=== PATIENT | male | born 1975 | race Caucasian/White ===

== ENCOUNTER 2016-09-19 11:22 | Inpatient (IN) | payer OTHER, MEDICAID ==
[2016-09-19 11:44] LABS: % IMMATURE GRANULYOCYTES 0.2 % (0.0-1.1); ABSOLUTE IMMATURE GRANULOCYTES 0.01 10^3/uL (0.00-0.10); ADD DIFF? NO; ADD MORPH? NO; ADD SCAN? NO; ATYPICAL LYMPHOCYTE FLAG 10 (0-99); FRAGMENT RBC FLAG 0 (0-99); HEMATOCRIT 46.7 % (40.0-51.0); LEFT SHIFT FLG 0 (0-99); LIPEMIA HEMOLYSIS FLAG 90 (0-99); MEAN CELL HEMOGLOBIN 28.6 pg (27.9-34.1); MEAN CELL HEMOGLOBIN CONCENTR. 34.3 g/dL (32.4-36.7); MEAN CELL VOLUME 83.5 fL (81.5-99.8); PLATELET CLUMPS FLAG 0 (0-99); PLATELET COUNT 253 10^3/uL (150-400); RED BLOOD CELL COUNT 5.59 10^6/uL (4.40-6.38); RED CELL DISTRIBUTION WIDTH 12.8 % (11.5-15.2)
[2016-09-19 12:05] LABS: ANION GAP 13 mEq/L (8-16); CALCIUM 10.4 mg/dL (8.5-10.4); CARBON DIOXIDE 24 mEq/l (22-31); CHLORIDE 104 mEq/L (97-110); ETHANOL SERUM < 10 mg/dL (0-10); GLOMERULAR FILTRATION RATE > 60; GLUCOSE 98 mg/dL (70-100); POTASSIUM 4.5 mEq/L (3.5-5.2); SODIUM 141 mEq/L (134-144)
--- NOTE | 2016-09-19 12:28 | EDPHY ---
H & P Stated Complaint: psych eval. Time Seen by Provider: 09/19/16 11:50 HPI/ROS: CHIEF COMPLAINT: Possible psychosis HISTORY OF PRESENT ILLNESS: 41-year-old male history of bipolar disorder, type 1 , history of alcohol use disorder, currently residing in a rehabilitation facility, brought into the ER by the director of the rehabilitation facility over concerns of increasing psychosis. Per the director of the facility, Darin , patient has been barricaded himself in his room and then was observed building a boat and trying to find [place] in his room, had arranged a set of oranges in a certain pattern and had been making hand gestures to a person who was not immediately visible to the staff there. Appeared to be responding to internal stimuli. Denies suicidal homicidal ideation. Patient adamantly denies statements of the director of the rehabilitation facility he is lying. In interviewing the director of the facility, the patient cannot return to the facility in his current mental health state REVIEW OF SYSTEMS: A ten point review of systems was performed and is negative with the exception of the items mentioned in the HPI PAST MEDICAL & SURGICAL HISTORY: Bipolar disorder SOCIAL HISTORY: denies recent alcohol or drug use PHYSICAL EXAM (Prior to examination, patient consented to physical exam, hands were washed and my usual and customary physical exam procedures followed) 1) GENERAL: Well-developed, well-nourished, alert and oriented. He is intermittently agitated, suspicious appearing, appears intermittently respond to internal stimuli 2) HEAD: Normocephalic, atraumatic 3) HEENT: Pupils equal, round, reactive to light bilaterally. Sclera anicteric. 4) NECK: Full range of motion, no meningeal signs. 5) LUNGS: Clear auscultation bilaterally, no wheezes, no rhonchi, no retractions. 6) HEART: Regular rate and rhythm, no murmur, no heave, no gallop. 7) ABDOMEN: No guarding, no rebound, no focal tenderness, negative McBurney's, negative Sommers's, negative Rovsing's, negative peritoneal sign, 8) MUSCULOSKELETAL: Moving all extremities, no focal areas of tenderness, no obvious trauma. No peripheral edema or discoloration. 9) BACK: No CVA tenderness, no midline vertebral tenderness, no fluctuance, no step-off, no obvious trauma, no visual or palpable abnormality. 10) SKIN: No rash, no petechiae. 11) Psychiatric: Patient is oriented X 3, intermittently agitated, suspicious appearing, appears to respond to internal stimuli intermittently. DIFFERENTIAL DIAGNOSIS: no particular include but limited to acute psychosis, cynthia, depression , intoxicants use - Personal History Current Tetanus/Diphtheria Vaccine: Unsure Current Tetanus Diphtheria and Acellular Pertussis (TDAP): Unsure Tetanus Vaccine Date: Unknown - Medical/Surgical History Hx Asthma: No Hx Chronic Respiratory Disease: No Hx Diabetes: No Hx Cardiac Disease: No Hx Renal Disease: No Hx Cirrhosis: No Hx Alcoholism: No Hx HIV/AIDS: No Hx Splenectomy or Spleen Trauma: No Other PMH: Bipolar disorder, panic attack. PSHx: L foot surgery - Social History Smoking Status: Current every day smoker Constitutional: Initial Vital Signs Temperature (C) 36.5 C 09/19/16 11:25 Heart Rate 88 09/19/16 11:25 Respiratory Rate 16 09/19/16 11:25 Blood Pressure 166/100 H 09/19/16 11:25 O2 Sat (%) 99 09/19/16 11:25 O2 Delivery Mode Room Air Allergies/Adverse Reactions: No Known Allergies Allergy (Verified 03/14/16 15:08) Home Medications: Medication Instructions Recorded Divalproex ER [Depakote ER 250 MG 500 mg PO BID #60 tab 03/18/16 (*)] Famotidine [Pepcid 20 MG (*)] 20 mg PO BID PRN #0 tab 03/18/16 Lisinopril [Zestril 10 mg (*)] 10 mg PO DAILY #30 tab 03/18/16 OLANZapine [ZyPREXA 2.5 mg (*)] 2.5 mg PO BID@ #15 tab 03/18/16 hydrOXYzine HCL 100 mg PO TID #90 tab 03/18/16 Medical Decision Making ED Course/Re-evaluation: 12:28 p.m.: After evaluating the patient I think that the patient is gravely disabled and would benefit from mental health evaluation. He has been placed on M1 hold over concerns about his ability to care for himself. 1:35 p.m. patient has been accepted for admission to Dr. Becki Barrett - Data Points Laboratory Results: Laboratory Results 09/19/16 11:25 09/19/16 11:25 09/19/16 11:25 WBC 5.66 10^3/uL (3.80-9.50) RBC 5.59 10^6/uL (4.40-6.38) Hgb 16.0 g/dL (13.7-17.5) Hct 46.7 % (40.0-51.0) MCV 83.5 fL (81.5-99.8) MCH 28.6 pg (27.9-34.1) MCHC 34.3 g/dL (32.4-36.7) RDW 12.8 % (11.5-15.2) Plt Count 253 10^3/uL (150-400) MPV 10.0 fL (8.7-11.7) Neut % (Auto) 62.7 % (39.3-74.2) Lymph % (Auto) 30.0 % (15.0-45.0) Dare % (Auto) 5.5 % (4.5-13.0) Eos % (Auto) 1.1 % (0.6-7.6) Baso % (Auto) 0.5 % (0.3-1.7) Nucleat RBC Rel Count 0.0 % (0.0-0.2) Absolute Neuts (auto) 3.55 10^3/uL (1.70-6.50) Absolute Lymphs (auto) 1.70 10^3/uL (1.00-3.00) Absolute Monos (auto) 0.31 10^3/uL (0.30-0.80) Absolute Eos (auto) 0.06 10^3/uL (0.03-0.40) Absolute Basos (auto) 0.03 10^3/uL (0.02-0.10) Absolute Nucleated RBC 0.00 10^3/uL (0-0.01) Immature Gran % 0.2 % (0.0-1.1) Immature Gran # 0.01 10^3/uL (0.00-0.10) Sodium 141 mEq/L (134-144) Potassium 4.5 mEq/L (3.5-5.2) Chloride 104 mEq/L (97-110) Carbon Dioxide 24 mEq/l (22-31) Anion Gap 13 mEq/L (8-16) BUN 13 mg/dL (7-23) Creatinine 1.0 mg/dL (0.7-1.3) Estimated GFR > 60 Glucose 98 mg/dL (70-100) Calcium 10.4 mg/dL (8.5-10.4) Urine Opiates Screen NEGATIVE (NEGATIVE) Urine Barbiturates NEGATIVE (NEGATIVE) Ur Phencyclidine Scrn NEGATIVE (NEGATIVE) Ur Amphetamine Screen NEGATIVE (NEGATIVE) U Benzodiazepines Scrn NEGATIVE (NEGATIVE) Urine Cocaine Screen NEGATIVE (NEGATIVE) U Marijuana (THC) Screen NEGATIVE (NEGATIVE) Ethyl Alcohol < 10 mg/dL (0-10) Medications Given: Discontinued Medications Lorazepam (Ativan) 1 mg PO EDNOW ONE Stop: 09/19/16 13:39 Last Admin: 09/19/16 14:09 Dose: 1 mg Lorazepam (Ativan) 1 mg PO EDNOW ONE Stop: 09/19/16 13:43 Last Admin: 09/19/16 15:20 Dose: Not Given Departure - Departure Disposition: [facility] IP Clinical Impression: Acute psychosis Bipolar disorder Qualifiers: Active/Remission status: currently active Current bipolar episode type: manic Current episode severity: moderate Qualifier Code: (F31.12) Bipolar disorder, current episode manic without psychotic features, moderate Condition: Fair Referrals: IN STATE,. [Primary Care Provider] - As per Instructions
[2016-09-19] MEDS ORDERED: NICOTINE POLACRILEX 2 MG GUM B PRN (13:30)
[2016-09-19] MEDS ORDERED: OLANZapine DISINTEGR 10 MG TAB PO ONE (13:30)
[2016-09-19] MEDS ORDERED: MAG HYDROX/AL HYDROX/SIMETH 30 ML UDCUP PO PRN ×2 (13:30→18:18)
[2016-09-19] MEDS ORDERED: OLANZapine DISINTEGR 10 MG TAB PO PRN (13:30)
[2016-09-19] MEDS ORDERED: MAGNESIUM HYDROXIDE 30 ML UDCUP PO PRN ×2 (13:30→18:18)
[2016-09-19] MEDS ORDERED: LORazepam 0.5 MG TAB PO PRN (13:30)
[2016-09-19] MEDS ORDERED: ACETAMINOPHEN 325 MG TAB PO PRN ×2 (13:30→18:18)
[2016-09-19] MEDS ORDERED: LORazepam 1 MG TAB PO ONE ×2 (13:38→13:42)
[2016-09-19] MEDS ORDERED: FAMOTIDINE 20 MG TAB PO PRN ×2 (13:39→18:18)
[2016-09-19] MEDS ORDERED: hydrOXYzine HCL 50 MG TAB PO SCH (16:00)
[2016-09-19] MEDS ORDERED: DIVALPROEX ER 500 MG TAB PO SCH (21:00)
[2016-09-19] MEDS ORDERED: OLANZapine 2.5 MG TAB PO SCH (21:00)
[2016-09-19] MEDS: DIVALPROEX ER 500 MG TAB PO SCH ×2 (21:18→21:30)
[2016-09-19] MEDS: hydrOXYzine HCL 50 MG TAB PO SCH (21:19)
[2016-09-19] MEDS: OLANZapine 2.5 MG TAB PO SCH ×2 (21:19→21:31)
[2016-09-19] MEDS: NICOTINE POLACRILEX 2 MG GUM B PRN (21:44)
[2016-09-19] MEDS ORDERED: QUEtiapine FUMARATE 100 MG TAB PO ONE (22:30)
[2016-09-20] MEDS: DIVALPROEX ER 500 MG TAB PO SCH (08:41)
[2016-09-20] MEDS: hydrOXYzine HCL 50 MG TAB PO SCH ×3 (08:42→21:04)
[2016-09-20] MEDS: NICOTINE POLACRILEX 2 MG GUM B PRN ×7 (08:43→19:04)
[2016-09-20] MEDS: LISINOPRIL 10 MG TAB PO SCH (08:46)
[2016-09-20] MEDS ORDERED: LISINOPRIL 10 MG TAB PO SCH (09:00)
[2016-09-20] MEDS: NICOTINE 21 MG/24 HR PATCH TD SCH ×2 (09:20→15:31)
--- NOTE | 2016-09-20 14:46 | BCON ---
[f rep st] BEHAVIORAL HEALTH CONSULTATION INTERNAL MEDICINE CONSULTATION DATE OF CONSULTATION: 09/20/2016 REFERRING PHYSICIAN: Becki Golden MD REASON FOR CONSULTATION: Medical clearance for inpatient behavioral health stay. HISTORY OF PRESENT ILLNESS: The patient was brought to the [facility] Emergency Department from a sober living alcohol rehabilitation facility called [place] out of concern for unusual behavior. The director of the program was concerned that he was responding to internal stimuli and was delusional. He was evaluated by the mental health team and admitted for further psychiatric care. He is currently without any acute complaint, other than feeling strongly that he should not be in the inpatient behavioral health unit and that it was a mistake for him to be brought to the emergency department. PAST MEDICAL HISTORY: 1. Bipolar disorder. 2. Alcohol use disorder, which apparently has been in remission for a number of months. 3. Hypertension. 4. History of bone spur on the left foot. PAST SURGICAL HISTORY: He had a procedure when he was in high school for the bone spur on the left foot. MEDICATIONS: He was taking divalproex 500 mg p.o. b.i.d., famotidine 20 mg p.o. b.i.d. p.r.n., lisinopril 10 mg p.o. daily, olanzapine 2.5 mg b.i.d., and hydroxyzine 100 mg t.i.d. ALLERGIES: There are no known drug allergies. SOCIAL HISTORY: He has a degree in finance, but has not worked in several years. He lives with his parents. He is a tobacco smoker. He says he had quit for 9 years, but started again with medication changes because he feels that the tobacco calms him down. He has a history of alcohol abuse with binge drinking but has been sober for many months now. FAMILY HISTORY: There is a history of alcoholism on his mother's side. REVIEW OF SYSTEMS: A 10-point review of systems was conducted and was negative. PHYSICAL EXAMINATION: VITAL SIGNS: Blood pressure this morning was 142/77, yesterday evening was 108/62. Heart rate was 79. Respiratory rate 12. Oxygen saturation 96% on room air. Temperature 36.4 degrees centigrade. His weight is 79.4 kg for a body mass index of 26.6. GENERAL: This is a well-nourished, well-developed man, well groomed, cooperative and in no acute distress. HEENT: Extraocular movements are intact. Pupils are equal, round, and reactive to light. Mucous membranes are moist. Dentition is in good condition. NECK: Supple. HEART: There is a regular rate and rhythm with no murmurs, rubs, or gallops. LUNGS: Clear to auscultation bilaterally. ABDOMEN: Soft, nontender , nondistended with normoactive bowel sounds. EXTREMITIES: There is no cyanosis, clubbing, or edema. NEUROLOGIC: He is alert and oriented x3. Cranial nerves II-XII are grossly intact. There is no focal weakness. Sensation is intact to light touch and gait is within normal limits. LABORATORY DATA: Laboratory studies from the emergency department: CBC was completely within normal limits. Serum chemistry showed normal renal function and electrolytes. Toxicology in the serum was negative for ethyl alcohol, and the urine was negative for substances of abuse. ASSESSMENT/RECOMMENDATIONS: 1. Mental health issues. Pending further evaluation and management per Psychiatry and the mental health team. 2. Tobacco dependence syndrome. He was encouraged to stop smoking. 3. Hypertension. Advised continuing his lisinopril and monitoring his blood pressure. If this is a short-stay, then no change at present is indicated. If he is to be here for a prolonged period of time, blood pressures can be followed and medications adjusted as needed. I see no medical contraindications to the patient's continued stay in the inpatient behavioral health unit or to any psychiatric medications or procedures. Thank you very much for including me in the care of this patient, and please do not hesitate to contact me or the hospitalist service should there be a need for further medical evaluation. /[id number]/MODL MTDD
[2016-09-20] MEDS: carBAMazepine 200 MG TAB PO SCH (18:25)
[2016-09-20] MEDS: OLANZapine 2.5 MG TAB PO SCH (18:25)
[2016-09-20] MEDS ORDERED: QUEtiapine FUMARATE 100 MG TAB PO SCH (21:00)
--- NOTE | 2016-09-20 22:13 | BAPA ---
[f rep st] ADMISSION PSYCHIATRIC ASSESSMENT DATE OF SERVICE: 09/20/2016 IDENTIFICATION: Patient is a 41-year-old single male who was admitted to the [facility] to symptoms of psychosis. CHIEF COMPLAINT: "I was hoping not to be here all weekend. Not really sure why I am here. That is what I am trying to figure out." HISTORY OF PRESENT ILLNESS: The patient reports there was no reason for him to be hospitalized. Ameena yost has been fine. He was asked about the report from the emergency department that the staff at his sober living facility had brought him in because they were concerned about him. He reported the y had tricked him by saying he was coming to see his psychiatrist, Dr. Jaquez. He was brought to the e mergency department instead and he was held against his will. He reported they fabricated some stori es, including him making circles out of oranges which he states he never had any oranges. He also st ates they reported he was making hand signals in the air when he was actually waving at a low flying plane in the air. He states they lied multiple times to try to get him to go to the emergency room. He thinks that the person who was responsible for this should lose their job. He is reporting he ne eds to talk with his bark peeler because he might have a lawsuit against that worker and this hospital. H e reported he does not think he needs to be in a hospital. Per the information from the emergency ro om, the patient was brought in to the emergency room by the staff at the facility he was staying in. They were concerned about him being psychotic. They reported that he barricaded himself in his room and he was observed to be "building a building and in trying to find Marialuisa L[place]." Also talked about him arranging oranges in a certain pattern and making hand gestures to persons on scene. REVIEW OF SYSTEMS: He reports a past history of cynthia where he would become creative, he would play with colors, he was hyperaware of everything including hot and cold sound. All his symptoms seemed t o be revved up. He reports that he is hyperaware now, but for some reason he thinks this is a clayton l day for him. He reports being very spiritual. He stated, "I felt like I had lived in a different world than most people. A very spiritual world." He reports that he never really felt depressed. Judi gómez believes his sleep is good. He denied any symptoms of depression. He rated his depression as 4/10 with 10 being the worst. He states this is "pretty stable for me." He denied any history of suicid e attempts or thoughts. He reported he has a history of racing thoughts, but he denied any current r acing thoughts. He stated, "My thinking is clear and quick," although he later stated sometimes we will have a repeating thought that seems to never go away, but he thought every single person has thi s on occasion, which is why people start to drink. He went on to state, "They drink to forget." He denied any anxiety, he denied any psychotic symptoms, even denied any history of psychosis, although his chart suggests that he does have a history of psychosis. PSYCHIATRIC HISTORY: He reports he has been diagnosed with bipolar disorder. He stated he agrees wi th the diagnosis, but he does not agree with him the medications he has been treated with in the past , except he likes what he is currently on, which is Lamictal and 2 doses of Seroquel, 1 small one in afternoon and a larger one in the evening. He thought they were working well. He states when he was on Depakote in the past he felt like a zombie. Per his chart from his last admission in February 2016, he has a history of being diagnosed with bipolar disorder. His first episode was at age 24. It appe ars that after 06/09 he became manic and he had inpatient treatment at a hospital in [place]. S derick that time, it appears he has had at least 4 other hospitalizations, including the previous one o n this unit. He was here from February 02, 2012 through February 05, 2012 due to a manic episode with psychosis. During that stay, he was treated with Zyprexa. During his last stay, he was treated with Depakote and Zyprexa, along with Vistaril. He has been treated with [facility] in the past, but m ore recently he has been seeing Dr. Jaquez, and as mentioned earlier, he has been treated with Lamictal and Seroquel most recently. He does have a history of medication and treatment noncompliance. SUBSTANCE ABUSE HISTORY: He has a history of alcohol dependence. He has had 3 DUIs in the past. Th e last one appears to have been in 2013. He reports he last used any substances 5 months ago and he has been living in a sober living community. He reports he was in one low security building, called [facility], up until approximately a few weeks ago. Possibly as recently as a week ago, he states he was moved to a more secure building. He was not able to state exactly why that change happened. He states that changes to his medications was approximately a month ago. That is when he was placed on the Seroquel and Lamictal. FAMILY PSYCHIATRIC HISTORY: None known. MEDICAL HISTORY: He denied any history of any medical problems including any head injuries. ALLERGIES: He denied any allergies to any drugs or medications. LABS: His labs appear to be within normal limits. SOCIAL HISTORY: He was born and raised in [place]. He is a high school graduate and he has a nelly helor's degree in business either from the [employer] or the [employer]. The records state 2 different things. He was raised by both parents. He has never . No children. 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 MENTAL STATUS EXAMINATION: He was a male of average height and weight. He was alert an or iented to person, place and time. He was sitting in the chair. He seemed a little anxious. He was moving his legs back and forth throughout much of the interview. He had fair eye contact. He would look down at the floor quite a bit. His speech was talkative. His mood he described as "I feel stab le; I feel nonviolent and peaceful." His affect: He appeared somewhat anxious. His thought process : He was perseverating about why he did not belong in the hospital and how the facility he was in [place] made a mistake sending him to the hospital. Thought content: He denied any thoughts of hurting hi mself or others. He denied any auditory or visual hallucinations. He appeared to be of average inte lligence. His abstract thinking was good. His judgment was good. His insight was poor. FORMULATION: This is a 41-year-old single male with a history of bipolar disorder, type 1, along with alcohol use disorder, who has been living in a sober living community. He did become con cerned because patient appeared to be psychotic recently. Patient is reporting they are just lying. The patient was in his room drawing on the windows when I entered the room. When he was asked what he was doing, he stated "I am writing a few personal notes on the window." He was asked why he was n ot using paper and he stated he did not have any. There did appear to be some paper on his dresser. Patient reportedly has recently presented with some manic and possibly psychotic symptoms. He does not feel that that is what happened recently. He actually states he feels stable on his medications. His medications were changed about a month ago per his report. It appears he may have been taken o ff Depakote because he felt it was making him feel like a zombie and placed on Lamictal instead. It is therefore possible that he did have a manic episode given he does have a history of such and that he does have a history of becoming psychotic while manic. At this time, he is reporting feeling his senses are more elevated which has historically been a sign that he was becoming manic. He also is f eeling more connected spiritually. He is not really endorsing other symptoms of cynthia at this time. He reporting a little depression. However, he states depression has never been an issue for him and he is not feeling suicidal or homicidal. He denied any thoughts of hurting himself or others. He i s less than honest about his symptoms at this time because he wants to go home and he wants to prove that the facility he was staying in was just lying. DIAGNOSIS: 1. Bipolar disorder type 1, most recent episode, manic with psychosis, preliminary. 2. Alcohol use disorder, severe, in early remission. PLAN: We will continue the patient on Seroquel to help with sleep. He was not interested in taking the afternoon dose he had previously been on. The patient mentioned that on Lamictal he had broken o ut in some bumps. However, he was not concerned about the bumps, because he felt that Dr. Jaquez had t old him that if developed Palacio-Prince syndrome the rash was not be similar to the bumps had appea red on his back and arms. It does not appear that anyone examined him or the bumps. For now, we preeti claudia hold the Lamictal and start him on Tegretol for his mood disorder. He does not want to restart Dep akote. We did discuss him starting Mckenney. However, he is on lisinopril for hypertension, and the combination of lithium and lisinopril may increase the risk of lithium toxicity. Therefore, a decisi on was made to start him on Tegretol for a mood stabilizer. He also was started on Zyprexa 10 mg las t night. That will be continued, even though he will be on polypharmacy, given he has 100 mg of Sero quel to help with sleep. Decision can be made at a later time to increase the Seroquel so that it pittman s more of a mood stabilizing benefit and discontinue Zyprexa, but for now will continue both. He als o has as-needed Vistaril and Ativan for anxiety and agitation, respectively. The Ativan actually preeti l also be for anxiety as needed. CRITERIA FOR ADMISSION: The patient does meet criteria for admission to the hospital given he presen hill with psychotic symptoms in the community and possibly of cynthia which is making him gravely disabl ed. /[id number]/MODL
[2016-09-21] MEDS: NICOTINE POLACRILEX 2 MG GUM B PRN ×6 (07:41→22:11)
[2016-09-21] MEDS: carBAMazepine 200 MG TAB PO SCH (08:40)
[2016-09-21] MEDS: hydrOXYzine HCL 50 MG TAB PO SCH ×3 (08:40→21:16)
[2016-09-21] MEDS: LISINOPRIL 10 MG TAB PO SCH (08:41)
[2016-09-21] MEDS: NICOTINE 21 MG/24 HR PATCH TD SCH (08:59)
--- NOTE | 2016-09-21 10:53 | SOAPPROG ---
SOAP Progress Note Assessment/Plan: Assessment: Pt is a 41 y/o male with a hx of Bipolar D/O and Alcohol Use Disorder-severe in early remission who was sent by his sober living facility for psychotic symptoms. Pt is known to this MD from previous 3N admission when he was stabalized on Zyprexa 7.5mg and Depakote 500mg BID. He reports he did not like how these meds made him feel and went to see a private psychiatrist Dr Jaquez a month ago and his meds were changed to Lamictal and Seroquel. He currently has bizarre thoughts and behaviors and lacks insight. He states until we talk to Dr Jaquez he will not change his meds. Pt reports he has 5 months of sobriety from alcohol due to being in sober living and attending AA. Plan:Will D/C Zyprexa and order Lamictal 25mg BID will increase Seroquel to 150mg QHS will contact Dr Jaquez M1 expires tomorrow 09/21/16 10:55 Subjective: "They lied about me at [facility]." Objective: Vital Signs Temp Pulse Resp BP Pulse Ox 36.3 C 64 14 141/66 H 97 09/21/16 06:12 09/21/16 06:12 09/21/16 06:12 09/21/16 06:12 09/21/16 06:12 Pt is A+O x4 mood-elevated affect-appr thoughts-illogical, grandiose speech-tangential, vague +bizarre thoughts and behavior-was "drawing" on his window yesterday denies S/H I denies A/V H memory-intact conc-impaired I/J-limited - Time Spent With Patient Time Spent With Patient: 25' - Pending Discharge Pending Discharge Within 24 Hours: No Pending Discharge Within 48 Hours: No ICD10 Worksheet Patient Problems: Problems Problem Status Diagnosed Acute psychosis Acute Bipolar disorder Acute Altered mental status Acute Anxiety Acute
[2016-09-21] MEDS ORDERED: QUEtiapine FUMARATE 100 MG TAB PO SCH (10:56)
[2016-09-21] MEDS: lamoTRIgine 25 MG TAB PO SCH ×2 (11:30→21:13)
[2016-09-21] MEDS: QUEtiapine FUMARATE 100 MG TAB PO SCH ×2 (13:06→21:12)
[2016-09-21] MEDS: OLANZapine 2.5 MG TAB PO SCH (21:14)
[2016-09-22] MEDS: NICOTINE 21 MG/24 HR PATCH TD SCH (07:58)
[2016-09-22] MEDS: LISINOPRIL 10 MG TAB PO SCH (08:00)
[2016-09-22] MEDS: lamoTRIgine 25 MG TAB PO SCH ×2 (08:00→21:20)
[2016-09-22] MEDS: hydrOXYzine HCL 50 MG TAB PO SCH ×4 (08:01→21:22)
[2016-09-22] MEDS: QUEtiapine FUMARATE 100 MG TAB PO SCH ×5 (08:02→23:09)
--- NOTE | 2016-09-22 11:33 | SOAPPROG ---
SOAP Progress Note Assessment/Plan: Assessment: Pt is a 41 y/o male with a hx of Bipolar D/O and Alcohol Use Disorder-severe in early remission who was sent by his sober living facility for psychotic symptoms. Pt is known to this MD from previous 3N admission when he was stabalized on Zyprexa 7.5mg and Depakote 500mg BID. He reports he did not like how these meds made him feel and went to see a private psychiatrist Dr Jaquez a month ago and his meds were changed to Lamictal and Seroquel. He currently has bizarre thoughts and behaviors and lacks insight. He states until we talk to Dr Jaquez he will not change his meds. Pt reports he has 5 months of sobriety from alcohol due to being in sober living and attending AA. 09/12/16-pt states he has no where to go and is willing to sign in vol-is afraid if he stays in a hotel he will relapse on alcohol Plan:Will increase Lamictal 50 mg BID will continue Seroquel 100mg BID will contact Dr Jaquez on Friday-he is in [place] will sign in vol 09/22/16 11:34 Subjective: "very positive." Objective: Vital Signs Temp Pulse Resp BP Pulse Ox 36.3 C 78 12 134/81 H 99 09/22/16 06:56 09/22/16 06:56 09/22/16 06:56 09/22/16 06:56 09/22/16 06:56 Pt is A+O x4 mood-"very positive" affect-appr + grandiosity about having new psychic abilities and that he went into a trance thoughts-logical at times denies S/H I denies A/V H speech-tangential slept 8 hours memory-intact good appetite and energy level no BANDAR I/J-fair - Time Spent With Patient Time Spent With Patient: 25' - Pending Discharge Pending Discharge Within 24 Hours: No Pending Discharge Within 48 Hours: No ICD10 Worksheet Patient Problems: Problems Problem Status Diagnosed Acute psychosis Acute Bipolar disorder Acute Altered mental status Acute Anxiety Acute
[2016-09-22] MEDS: NICOTINE POLACRILEX 2 MG GUM B PRN ×3 (14:17→18:20)
[2016-09-22] MEDS: OLANZapine DISINTEGR 10 MG TAB PO PRN ×2 (21:20→21:26)
[2016-09-22] MEDS: OLANZapine 2.5 MG TAB PO SCH (21:37)
[2016-09-23] MEDS: NICOTINE 21 MG/24 HR PATCH TD SCH (09:13)
[2016-09-23] MEDS: LISINOPRIL 10 MG TAB PO SCH (09:13)
[2016-09-23] MEDS: lamoTRIgine 25 MG TAB PO SCH (09:14)
[2016-09-23] MEDS: NICOTINE POLACRILEX 2 MG GUM B PRN ×5 (09:14→21:20)
[2016-09-23] MEDS: hydrOXYzine HCL 50 MG TAB PO SCH ×3 (09:14→21:03)
[2016-09-23] MEDS: QUEtiapine FUMARATE 100 MG TAB PO SCH ×3 (09:15→21:01)
[2016-09-23] MEDS: lamoTRIgine 100 MG TAB PO SCH (21:01)
[2016-09-23] MEDS: OLANZapine 2.5 MG TAB PO SCH (21:03)
[2016-09-24] MEDS: LISINOPRIL 10 MG TAB PO SCH (08:24)
[2016-09-24] MEDS: NICOTINE 21 MG/24 HR PATCH TD SCH (08:25)
[2016-09-24] MEDS: NICOTINE POLACRILEX 2 MG GUM B PRN ×3 (08:25→13:22)
[2016-09-24] MEDS: hydrOXYzine HCL 50 MG TAB PO SCH ×4 (08:32→22:18)
--- NOTE | 2016-09-24 12:54 | SOAPPROG ---
SOAP Progress Note Assessment/Plan: Assessment: Plan: 09/24/16 12:54 Remains manic. Will increase Lamictal to 300mg, continue Zyprexa and Seroquel until I can speak to Dr. Jaquez. Subjective: LATE ENTRY FOR 09/23/16 Pt seen, discussed with staff. Reports feeling "just fine, great." States he is in the midst of inventing "a lot of cool mechanical things." Pressured and tangential, but pleasant. States he does not want to change meds until I speak with Dr. Jaquez. I did call his pharmacy and found out his proper dose of Lamictal is 300mg qhs. Objective: Vital Signs Temp Pulse Resp BP Pulse Ox 36.5 C 78 12 135/77 H 96 09/24/16 06:00 09/24/16 08:25 09/24/16 08:25 09/24/16 08:25 09/24/16 06:00 MSE: Animate, pressured. Affect is expansive, irritable at times. Mood is "great." TP tangential. TC reveals grandiose thoughts. Denies SI/HI/. - Time Spent With Patient Time Spent With Patient: 35" - Pending Discharge Pending Discharge Within 24 Hours: No Pending Discharge Within 48 Hours: No ICD10 Worksheet Patient Problems: Problems Problem Status Diagnosed Acute psychosis Acute Bipolar disorder Acute Altered mental status Acute Anxiety Acute
--- NOTE | 2016-09-24 12:57 | SOAPPROG ---
SOAP Progress Note Assessment/Plan: Assessment: Plan: 09/24/16 12:54 Remains manic. Will increase Lamictal to 300mg, continue Zyprexa and Seroquel until I can speak to Dr. Jaquez. 09/24/16 12:57 Remains elevated, manic. Will d/c Seroquel and increased Zyprexa to 15mg. Subjective: Pt seen, discussed with staff. Reports feeling "a little frustrated, but great. " Compliant with meds. I spoke with Dr. Jaquez this morning who is supportive of pt going back on Zyprexa. I relayed this to pt and he agrees. He is not willing to retry VPA, however, due to it "making me a total zombie." Objective: Vital Signs Temp Pulse Resp BP Pulse Ox 36.5 C 78 12 135/77 H 96 09/24/16 06:00 09/24/16 08:25 09/24/16 08:25 09/24/16 08:25 09/24/16 06:00 MSE: Moderately activated, pressured. Affect is expansive. Mood is "great." TP tangential. TC reveals continued grandiose thoughts. - Time Spent With Patient Time Spent With Patient: 25" - Pending Discharge Pending Discharge Within 24 Hours: No Pending Discharge Within 48 Hours: No ICD10 Worksheet Patient Problems: Problems Problem Status Diagnosed Acute psychosis Acute Bipolar disorder Acute Altered mental status Acute Anxiety Acute
[2016-09-24] MEDS: OLANZapine DISINTEGR 10 MG TAB PO PRN (13:25)
[2016-09-24] MEDS: QUEtiapine FUMARATE 100 MG TAB PO SCH (13:26)
[2016-09-24] MEDS: lamoTRIgine 100 MG TAB PO SCH (20:57)
[2016-09-24] MEDS: OLANZapine 2.5 MG TAB PO SCH (20:58)
[2016-09-25] MEDS: NICOTINE 21 MG/24 HR PATCH TD SCH (07:48)
[2016-09-25] MEDS: NICOTINE POLACRILEX 2 MG GUM B PRN ×5 (07:50→17:29)
[2016-09-25] MEDS: LISINOPRIL 10 MG TAB PO SCH (07:54)
[2016-09-25] MEDS: hydrOXYzine HCL 50 MG TAB PO SCH ×3 (08:27→19:42)
[2016-09-25] MEDS: OLANZapine DISINTEGR 10 MG TAB PO PRN (11:54)
--- NOTE | 2016-09-25 13:26 | SOAPPROG ---
SOAP Progress Note Assessment/Plan: Assessment: Plan: 09/24/16 12:54 Remains manic. Will increase Lamictal to 300mg, continue Zyprexa and Seroquel until I can speak to Dr. Jaquez. 09/24/16 12:57 Remains elevated, manic. Will d/c Seroquel and increased Zyprexa to 15mg. 09/25/16 13:26 Calmer, less elevated today. Less grandiose. CCM. Subjective: Pt seen, discussed with staff. Reports feeling "just fine. Normal." He describes the meeting with program staff yesterday as "really good." He is pleased he will be able to return there. He has limited insight into his condition preceding admission or his behaviors stating, "I think they just misinterpreted things." He is compliant with the Zyprexa despite making some comments yesterday to CC that he was not going to take it. Sleeping well. Objective: Vital Signs Temp Pulse Resp BP Pulse Ox 36.7 C 100 18 136/82 H 94 09/25/16 06:00 09/25/16 07:55 09/25/16 06:00 09/25/16 07:55 09/25/16 06:00 MSE: Calmer, coop. Affect is less elevated. Speech is less pressured, more normal pace. TP generally linear. TC reveals less grandiosity. - Time Spent With Patient Time Spent With Patient: 25" - Pending Discharge Pending Discharge Within 24 Hours: No Pending Discharge Within 48 Hours: No ICD10 Worksheet Patient Problems: Problems Problem Status Diagnosed Acute psychosis Acute Bipolar disorder Acute Altered mental status Acute Anxiety Acute
[2016-09-25] MEDS: OLANZapine 2.5 MG TAB PO SCH (19:20)
[2016-09-25] MEDS: lamoTRIgine 100 MG TAB PO SCH (19:20)
[2016-09-26] MEDS: LISINOPRIL 10 MG TAB PO SCH (08:36)
[2016-09-26] MEDS: hydrOXYzine HCL 50 MG TAB PO SCH (08:36)
[2016-09-26] MEDS: NICOTINE 21 MG/24 HR PATCH TD SCH (08:37)
[2016-09-26] MEDS: NICOTINE POLACRILEX 2 MG GUM B PRN ×6 (08:37→21:03)
[2016-09-26] MEDS: OLANZapine DISINTEGR 10 MG TAB PO PRN (12:24)
--- NOTE | 2016-09-26 17:14 | SOAPPROG ---
SOAP Progress Note Assessment/Plan: Assessment: Plan: 09/24/16 12:54 Remains manic. Will increase Lamictal to 300mg, continue Zyprexa and Seroquel until I can speak to Dr. Jaquez. 09/24/16 12:57 Remains elevated, manic. Will d/c Seroquel and increased Zyprexa to 15mg. 09/25/16 13:26 Calmer, less elevated today. Less grandiose. CCM. 09/26/16 17:14 Gradual stabilization on Zyprexa and Lamictal. CCM. Subjective: Pt seen, discussed with staff. Reports feeling "just fine." States he is ready to leave the hospital and return to treatment program. Compliant with meds. Notes no SE's. Objective: Vital Signs Temp Pulse Resp BP Pulse Ox 36.3 C 57 L 12 153/89 H 97 09/26/16 06:22 09/26/16 06:22 09/26/16 06:22 09/26/16 08:36 09/26/16 06:22 MSE: Calm, coop. Affect is more stable. Mood is "great." TP generally linear for this interaction. TC reveals some continued grandiosity, but less. - Time Spent With Patient Time Spent With Patient: 25" - Pending Discharge Pending Discharge Within 24 Hours: No Pending Discharge Within 48 Hours: No ICD10 Worksheet Patient Problems: Problems Problem Status Diagnosed Acute psychosis Acute Bipolar disorder Acute Altered mental status Acute Anxiety Acute
[2016-09-26] MEDS: OLANZapine DISINTEGR 10 MG TAB PO SCH (20:59)
[2016-09-26] MEDS: lamoTRIgine 100 MG TAB PO SCH (20:59)
[2016-09-26] MEDS: OLANZapine DISINTEGR 5 MG TAB PO SCH (20:59)
[2016-09-27] MEDS: LISINOPRIL 10 MG TAB PO SCH (08:47)
[2016-09-27] MEDS: NICOTINE 21 MG/24 HR PATCH TD SCH (08:48)
[2016-09-27] MEDS: NICOTINE POLACRILEX 2 MG GUM B PRN ×8 (08:52→20:51)
--- NOTE | 2016-09-27 11:21 | SOAPPROG ---
SOAP Progress Note Assessment/Plan: Assessment: Plan: 09/24/16 12:54 Remains manic. Will increase Lamictal to 300mg, continue Zyprexa and Seroquel until I can speak to Dr. Jaquez. 09/24/16 12:57 Remains elevated, manic. Will d/c Seroquel and increased Zyprexa to 15mg. 09/25/16 13:26 Calmer, less elevated today. Less grandiose. CCM. 09/26/16 17:14 Gradual stabilization on Zyprexa and Lamictal. CCM. 09/27/16 11:20 Continued improvement. Will CCM, confer with program and CC in re: to timing of d/c. Subjective: Pt seen, discussed with staff. Reports again today that he is ready to return to sober living. He states, "My cynthia is completely over now." He is calmer, sleeping better (7 hours last night) and his thoughts are more rational. He is compliant with meds. Objective: Vital Signs Temp Pulse Resp BP Pulse Ox 36.3 C 67 16 130/70 H 95 09/27/16 06:30 09/27/16 06:30 09/27/16 09:10 09/27/16 09:10 09/27/16 06:30 MSE: Calm, coop, less animated. Affect is constricted, stable. Mood is "good. " TP linear. TC reveals much less grandiosity. - Time Spent With Patient Time Spent With Patient: 25" ICD10 Worksheet Patient Problems: Problems Problem Status Diagnosed Acute psychosis Acute Bipolar disorder Acute Altered mental status Acute Anxiety Acute
[2016-09-27] MEDS: OLANZapine DISINTEGR 10 MG TAB PO PRN (13:48)
[2016-09-27] MEDS: OLANZapine DISINTEGR 10 MG TAB PO SCH (20:51)
[2016-09-27] MEDS: lamoTRIgine 100 MG TAB PO SCH (20:51)
[2016-09-27] MEDS: OLANZapine DISINTEGR 5 MG TAB PO SCH (20:51)
[2016-09-28] MEDS: NICOTINE POLACRILEX 2 MG GUM B PRN ×8 (08:33→21:06)
[2016-09-28] MEDS: LISINOPRIL 10 MG TAB PO SCH (09:24)
[2016-09-28] MEDS: NICOTINE 21 MG/24 HR PATCH TD SCH (09:26)
[2016-09-28] MEDS: OLANZapine DISINTEGR 10 MG TAB PO PRN (11:53)
[2016-09-28] MEDS: hydrOXYzine HCL 50 MG TAB PO PRN (11:53)
[2016-09-28] MEDS: guaiFENesin 600 MG TAB.ER PO PRN (19:35)
[2016-09-28] MEDS: lamoTRIgine 100 MG TAB PO SCH (21:02)
[2016-09-28] MEDS: OLANZapine DISINTEGR 10 MG TAB PO SCH (21:02)
[2016-09-28] MEDS: OLANZapine DISINTEGR 5 MG TAB PO SCH (21:03)
[2016-09-29] MEDS: guaiFENesin 600 MG TAB.ER PO PRN ×2 (07:08→16:22)
[2016-09-29] MEDS: NICOTINE POLACRILEX 2 MG GUM B PRN ×7 (07:21→20:50)
[2016-09-29] MEDS: NICOTINE 21 MG/24 HR PATCH TD SCH (08:34)
[2016-09-29] MEDS: LISINOPRIL 10 MG TAB PO SCH (08:35)
--- NOTE | 2016-09-29 18:48 | SOAPPROG ---
SOAP Progress Note Assessment/Plan: Assessment: Plan: 09/24/16 12:54 Remains manic. Will increase Lamictal to 300mg, continue Zyprexa and Seroquel until I can speak to Dr. Jaquez. 09/24/16 12:57 Remains elevated, manic. Will d/c Seroquel and increased Zyprexa to 15mg. 09/25/16 13:26 Calmer, less elevated today. Less grandiose. CCM. 09/26/16 17:14 Gradual stabilization on Zyprexa and Lamictal. CCM. 09/27/16 11:20 Continued improvement. Will CCM, confer with program and CC in re: to timing of d/c. 09/29/16 19:02 Stabilizing. CCM. Likely d/c Friday. Subjective: LATE ENTRY FOR 09/28/16 Pt seen, discussed with staff. He continues to report feeling "completely normal." I reviewed with him the events preceding admission and he continues to demonstrate poor insight into the seriousness of his illness. He continues to view his manic behaviors as "performance art." I spoke with the director of the sob living home and she prefers to have him transition back during the week due to the lack of structure during the weekends. Objective: Vital Signs Temp Pulse Resp BP Pulse Ox 36.5 C 92 14 141/79 H 94 09/28/16 06:00 09/29/16 06:12 09/29/16 06:12 09/29/16 08:35 09/29/16 06:12 MSE: Moderately activated, cooperative. Affect is elevated, but under reasonable control. Mood is "great." TP circumstantial. TC reveals no overt grandiosity despite poor insight. - Time Spent With Patient Time Spent With Patient: 25" - Pending Discharge Pending Discharge Within 24 Hours: No ICD10 Worksheet Patient Problems: Problems Problem Status Diagnosed Acute psychosis Acute Bipolar disorder Acute Altered mental status Acute Anxiety Acute
--- NOTE | 2016-09-29 19:10 | SOAPPROG ---
SOAP Progress Note Assessment/Plan: Assessment: Plan: 09/24/16 12:54 Remains manic. Will increase Lamictal to 300mg, continue Zyprexa and Seroquel until I can speak to Dr. Jaquez. 09/24/16 12:57 Remains elevated, manic. Will d/c Seroquel and increased Zyprexa to 15mg. 09/25/16 13:26 Calmer, less elevated today. Less grandiose. CCM. 09/26/16 17:14 Gradual stabilization on Zyprexa and Lamictal. CCM. 09/27/16 11:20 Continued improvement. Will CCM, confer with program and CC in re: to timing of d/c. 09/29/16 19:02 Stabilizing. CCM. Likely d/c Friday. 09/29/16 19:14 Doing well. Likely d/c tomorrow. CCM. Subjective: Pt seen, discussed with staff. No interval change. Slept well. Agreeable to d/ c tomorrow back to sober living. Objective: Vital Signs Temp Pulse Resp BP Pulse Ox 36.5 C 92 14 141/79 H 94 09/28/16 06:00 09/29/16 06:12 09/29/16 06:12 09/29/16 08:35 09/29/16 06:12 MSE: Calm, cooperative. Becomes mildly agitated when discussing diagnosis and , in his opinion, "unnecessary" hospitalization. - Time Spent With Patient Time Spent With Patient: 25" - Pending Discharge Pending Discharge Within 24 Hours: No Pending Discharge Within 48 Hours: No ICD10 Worksheet Patient Problems: Problems Problem Status Diagnosed Acute psychosis Acute Bipolar disorder Acute Altered mental status Acute Anxiety Acute
[2016-09-29] MEDS: lamoTRIgine 100 MG TAB PO SCH (20:37)
[2016-09-29] MEDS: OLANZapine DISINTEGR 10 MG TAB PO SCH (20:37)
[2016-09-29] MEDS: OLANZapine DISINTEGR 5 MG TAB PO SCH (20:37)
[2016-09-29] MEDS: hydrOXYzine HCL 50 MG TAB PO PRN (20:42)
[2016-09-30 06:30] VITALS: BP 141/71; PULSE 66; RESP 12; TEMP 98; O2SAT 96
[2016-09-30] MEDS: LISINOPRIL 10 MG TAB PO SCH (08:45)
[2016-09-30] MEDS: NICOTINE POLACRILEX 2 MG GUM B PRN (08:45)
[2016-09-30] MEDS: NICOTINE 21 MG/24 HR PATCH TD SCH (10:09)
== END 2016-09-30 10:02 | disposition home or self-care (01) | DRG 885 ==
LOC: BBEH 18:10
PROVIDERS: ADMIT Psychiatry & Neurology Psychiatry; ATTEND Psychiatry & Neurology Psychiatry
DX: F31.2 Bipolar disorder, current episode manic severe with psychotic features (principal); Z72.0 Tobacco use; I10 Essential (primary) hypertension
CPT/HCPCS: G0477; G0480

== ENCOUNTER 2019-01-13 00:53 | Emergency (ER) | payer OTHER, MEDICAID ==
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
[2019-01-13 01:07] VITALS: BP 151/90
== END 2019-01-13 01:18 ==
LOC: EDUNIT#
DX: Z02.89 Encounter for other administrative examinations (principal); F10.920 Alcohol use, unspecified with intoxication, uncomplicated